=== PATIENT | female | born 1950 | race Caucasian/White ===

== ENCOUNTER → 2022-01-20 | Day surgery (SDC) | payer MEDICARE, BC ==
[~2022-01-20] MED LIST: Ketamine 200 MG/20 ML MDV ONE; Propofol 200 MG/20 ML SDV ONE; ePHEDrine 50 MG/ML SDV ONE; fentaNYL 50 MCG/ML SDV ONE
[2022-01-20] MEDS: Lactated Ringers 1,000 ML IV SCH (08:33)
[2022-01-20 11:25] VITALS: BP 128/53; PULSE 75
== END ==
LOC: CC.SDS 07:33
PROVIDERS: ATTEND Family Medicine
DX: Z12.11 Encounter for screening for malignant neoplasm of colon (principal); E78.00 Pure hypercholesterolemia, unspecified; N95.1 Menopausal and female climacteric states; Z86.73 Personal history of transient ischemic attack (TIA), and cerebral infarction without residual deficits; Z79.82 Long term (current) use of aspirin; Z79.899 Other long term (current) drug therapy; Z98.890 Other specified postprocedural states
CPT/HCPCS: J2704; J3010; J7120